=== PATIENT | male | born 1990 | race African-American/Black ===

== ENCOUNTER 2017-07-27 15:51 | Emergency (ER) | payer SELFPAY ==
[2017-07-27] MEDS ORDERED: Ketorolac 60 MG/2 ML SDV IM ONE (16:35)
--- NOTE | 2017-07-27 16:35 | EDM.PDOC ---
ED HPI GENERAL MEDICAL PROBLEM - General Chief Complaint: Cardiovascular Problem Stated Complaint: CHEST PAIN Time Seen by Provider: 07/27/17 16:27 Source of Information: Reports: Patient History Limitations: Reports: No Limitations - History of Present Illness INITIAL COMMENTS - FREE TEXT/NARRATIVE: HISTORY AND PHYSICAL: History of present illness: Patient is a 27-year-old male who complains of left chest wall pain 1 month. He states that the pain is intermittent and not precipitated by movement or activity. Reports he usually can "take in deep breaths and it will go away". Denies any recent trauma or injury to the chest. Denies any cough, fever, chills , shortness of breath. No history of smoking. No cardiac history in his family. Review of systems: As per history of present illness and below otherwise all systems reviewed and negative. Past medical history: As per history of present illness and as reviewed below otherwise noncontributory. Surgical history: As per history of present illness and as reviewed below otherwise noncontributory. Social history: No reported history of drug or alcohol abuse. Family history: As per history of present illness and as reviewed below otherwise noncontributory. Physical exam: Gen.: Well-developed and well-nourished 27-year-old male. Able to speak in full sentences without shortness of breath. Alert and oriented HEENT: Atraumatic, normocephalic, pupils reactive, negative for conjunctival pallor or scleral icterus, mucous membranes moist, throat clear, neck supple, nontender, trachea midline. Lungs: Clear to auscultation, breath sounds equal bilaterally, chest nontender. Heart: S1S2, regular, negative for clicks, rubs, or JVD. Abdomen: Soft, nondistended, nontender. Negative for masses or hepatosplenomegaly. Negative for costovertebral tenderness. Pelvis: Stable nontender. Genitourinary: Deferred. Rectal: Deferred. Extremities: Atraumatic, negative for cords or calf pain. Neurovascular unremarkable. Neuro: Awake, alert, oriented. Cranial nerves II through XII unremarkable. Cerebellum unremarkable. Motor and sensory unremarkable throughout. Exam nonfocal. Reviewed all testing results with the patient. The lab work is ultimately benign along with the EKG. 2 views chest x-ray did not show any cardiac enlargement or rib fractures or pneumonia. Due to patient's chest pain being reproducible with palpation this is likely costochondritis. I did request that the patient follow up with his primary care provider in the next 2-3 days if this continues to be a problem. Will prescribe Cataflam as an anti-inflammatory pain medication. Instructed patient to not take any additional NSAIDs and please take this medication with food. Patient is agreeable to plan of care and denies any further questions at this time. Diagnostics: CBC, CMP, troponin, EKG, 2 view chest x-ray Therapeutics: Toradol IM Impression: Costochondritis Plan: 1. Please take the Cataflam 3 times a day for the next 1 week. After that you may take it as needed. With this medication do not take any additional NSAIDs such as ibuprofen or Aleve. Also may want to take this medication with food. While taking this medication you may want to take an [id number] omeprazole 20 mg once daily in the morning. This will prevent any GI upset. 2. You may apply gentle heat to the area. 3. Follow-up with your primary care provider in the next 1-2 days. Return to the ED as needed as discussed Definitive disposition and diagnosis as appropriate pending reevaluation and review of above. Duration: Week(s): Location: Reports: Chest Left Chest Pain Score (Numeric/FACES): 7 - Related Data Allergies Allergy/AdvReac Type Severity Reaction Status Date / Time No Known Allergies Allergy Verified 07/27/17 16:00 Home Meds: Home Meds . [No Known Home Meds] 07/27/17 [History] Past Medical History HEENT History: Reports: None Cardiovascular History: Reports: None Gastrointestinal History: Reports: None Genitourinary History: Reports: None Musculoskeletal History: Reports: None Neurological History: Reports: Migraines Psychiatric History: Reports: None Endocrine/Metabolic History: Reports: None Oncologic (Cancer) History: Reports: None Dermatologic History: Reports: None - Infectious Disease History Infectious Disease History: Reports: None - Past Surgical History Head Surgeries/Procedures: Reports: None Social & Family History - Tobacco Use Smoking Status *Q: Never Smoker Second Hand Smoke Exposure: No - Caffeine Use Caffeine Use: Reports: None - Recreational Drug Use Recreational Drug Use: No ED ROS GENERAL - Review of Systems Review Of Systems: ROS reveals no pertinent complaints other than HPI. ED EXAM, GENERAL - Physical Exam Exam: See Below (See dictation) Course - Vital Signs Last Recorded V/S: Last Vital Signs Temp 36.6 C 07/27/17 15:55 Pulse 67 07/27/17 15:55 Resp 16 07/27/17 15:55 BP 120/59 L 07/27/17 15:55 Pulse Ox 98 07/27/17 15:55 - Orders/Labs/Meds Orders: Active Orders 24 hr Category Date Time Status EKG 12 Lead [EKG Documentation Completion] [RC] STAT Care 07/27/17 16:11 Active Chest 2V [CR] Stat Exams 07/27/17 16:32 Taken Labs: Laboratory Tests 07/27/17 07/27/17 07/27/17 Range/Units 16:55 16:55 16:55 WBC 8.31 (4.0-11.0) K/uL RBC 4.92 (4.50-5.90) M/uL Hgb 14.1 (13.0-17.0) g/dL Hct 42.2 (38.0-50.0) % MCV 85.8 (80.0-98.0) fL MCH 28.7 (27.0-32.0) pg MCHC 33.4 (31.0-37.0) g/dL RDW Std Deviation 41.7 (28.0-62.0) fl RDW Coeff of Aryan 13 (11.0-15.0) % Plt Count 216 (150-400) K/uL MPV 10.10 (7.40-12.00) fL Add Manual Diff YES Neutrophils % (Manual) 53 (48.0-80.0) % Lymphocytes % (Manual) 31 (16.0-40.0) % Monocytes % (Manual) 12 (0.0-15.0) % Eosinophils % (Manual) 3 (0.0-7.0) % Basophils % (Manual) 1 (0.0-1.5) % Nucleated RBC % 0.0 /100WBC Absolute Seg Neuts 4.4 (1.4-5.7) Lymphocytes # (Manual) 2.6 H (0.6-2.4) Monocytes # (Manual) 1.0 H (0.0-0.8) Eosinophils # (Manual) 0.2 (0.0-0.7) Basophils # (Manual) 0.1 (0.0-0.1) Nucleated RBCs # 0 K/uL Sodium 137 (136-146) mmol/L Potassium 4.3 (3.5-5.1) mmol/L Chloride 104 (98-110) mmol/L Carbon Dioxide 24 (21-31) mmol/L BUN 27 H (6.0-23.0) mg/dL Creatinine 1.3 (0.6-1.5) mg/dL Est Cr Clr Drug Dosing 86.86 mL/min Estimated GFR (MDRD) > 60.0 ml/min Glucose 75 (60-110) mg/dL Calcium 10.0 (8.8-10.8) mg/dL Total Bilirubin 0.3 (0.1-1.5) mg/dL AST 41 H (5-40) IU/L ALT 33 (8-54) IU/L Alkaline Phosphatase 76 (40-150) Troponin I < 0.10 (0.0-0.29) NG/ML Total Protein 7.7 (6.0-8.0) g/dL Albumin 4.4 (3.5-5.0) g/dL Globulin 3.3 (2.0-3.5) g/dL Albumin/Globulin Ratio 1.3 (1.3-2.8) Meds: Medications Discontinued Medications Generic Name Dose Route Start Last Admin Trade Name Freq PRN Reason Stop Dose Admin Ketorolac Tromethamine 60 mg 07/27/17 16:35 07/27/17 16:52 Toradol IM 07/27/17 16:36 60 mg ONETIME ONE Administration Departure - Departure Time of Disposition: 18:09 Disposition: Home, Self-Care 01 Clinical Impression: Costochondritis Referrals: PCP,None [Primary Care Provider] - Forms: ED Department Discharge Additional Instructions: My general discharge The following information is given to patients seen in the emergency department who are being discharged to home. This information is to outline your options for follow-up care. We provide all patients seen in our emergency department with a follow-up referral. The need for follow-up, as well as the timing and circumstances, are variable depending upon the specifics of your emergency department visit. If you don't have a primary care physician on staff, we will provide you with a referral. We always advise you to contact your personal physician following an emergency department visit to inform them of the circumstance of the visit and for follow-up with them and/or the need for any referrals to a consulting specialist. The emergency department will also refer you to a specialist when appropriate. This referral assures that you have the opportunity for follow-up care with a specialist. All of these measure are taken in an effort to provide you with optimal care, which includes your follow-up. Under all circumstances we always encourage you to contact your private physician who remains a resource for coordinating your care. When calling for follow-up care, please make the office aware that this follow-up is from your recent emergency room visit. If for any reason you are refused follow-up, please contact the [facility] Emergency Department at and asked to speak to the emergency department charge nurse. [facility] [address] [place] [id number] 1. Please take the Cataflam 3 times a day for the next 1 week. After that you may take it as needed. With this medication do not take any additional NSAIDs such as ibuprofen or Aleve. Also may want to take this medication with food. While taking this medication you may want to take the prescribed omeprazole 20 mg once daily in the morning. This will prevent any GI upset/GI bleeding associated with any NSAID use. 2. You may apply gentle heat to the area. 3. Follow-up with your primary care provider in the next 1-2 days. Return to the ED as needed as discussed - My Orders Last 24 Hours: My Active Orders 07/27/17 16:32 Chest 2V [CR] Stat - Assessment/Plan Last 24 Hours: My Active Orders 07/27/17 16:32 Chest 2V [CR] Stat
[2017-07-27 17:23] LABS: CHLORIDE,CL 104 mmol/L (98-110); SODIUM,NA 137 mmol/L (136-146)
--- NOTE | 2017-07-28 09:42 | CR ---
EXAM DATE: 07/27/17 PATIENT'S AGE: 27 Patient: THERESA VELASQUEZ Facility: [place], [place] Site . Site : 1990 Study: XRay Chest [id number]/12/2017 5:16:44 PM Ordering Physician: Doctor Marks Final Report: INDICATION: Chest pain TECHNIQUE: Chest 2 views. COMPARISON: None available FINDINGS: Cardiovascular and mediastinum: Normal cardiac size. Mild prominence of the main pulmonary artery. Lungs and pleural spaces: Lungs are clear. No sign of infiltrate or mass. No sign of pleural effusion. No pneumothorax. Bones and soft tissues: No significant findings. IMPRESSION: No sign of acute disease. Mild prominence of the main pulmonary artery. Correlate clinically to exclude pulmonic stenosis. Dictated by Luciano Nieves MD @ 07/27/2017 5:33:58 PM Dictated by: Luciano Nieves MD @ 07/27/2017 17:34:04 (Electronic Signature) Report Signed by Proxy. KATAI
== END 2017-07-27 18:22 | disposition home or self-care (01) ==
LOC: MW.ED 15:51
DX: M94.0 Chondrocostal junction syndrome [Tietze] (principal)
CPT/HCPCS: 36415; 71020; 80053; 84484; 85025; 93005; 96372; 99285; J1885; 99283

== ENCOUNTER 2025-03-28 13:28 | Emergency (ER) | payer OTHER ==
[2025-03-28] MEDS: Lidocaine 1% 10 ML MDV INJECT ONE (14:17)
== END 2025-03-28 15:05 | disposition home or self-care (01) ==
LOC: MW.ED 13:28
DX: S61.210A Laceration without foreign body of right index finger without damage to nail, initial encounter (principal); W26.0XXA Contact with knife, initial encounter
CPT/HCPCS: 12001; 99282; J2003; 99283